=== PATIENT | male | born 1975 | race Two or more races ===

== ENCOUNTER → 2019-01-09 | Outpatient (CLI) | payer OTHER ==
[~2019-01-09] MED LIST: CONRAY-43 43% 50ML VIAL (Q9960) As Ordered ONE; PROHANCE 279.3MG/ML 5ML VIAL (A9576) As Ordered ONE
--- NOTE | 2019-01-09 11:26 | REP ---
MR ARTHROGRAM, RIGHT SHOULDER: TECHNIQUE: Axial T2 fat sat, coronal oblique T1, T2 fat sat, post arthrogram axial T1 fat sat, proton density, coronal oblique T1 fat sat, T2 sat, sagittal oblique T2 fat sat, ABER T1 fat sat. Mild ill-defined high signal is seen in the supraspinatus tendon compatible with mild tendinopathy/tendinitis. No rotator cuff tendon tear is seen. There is mild hypertrophic changes at the acromioclavicular joint with mild fluid in the joint and a tiny subchondral cyst in the distal end of the clavicle. Acromion is type 1. The biceps tendon is within the bicipital groove and no tenosynovitis. There is no Hill-Sachs deformity. A small band-like area of high signal on T2-weighted images in the posterior deltoid muscle may represent a muscle strain. The biceps labral complex appears intact. There is a diffuse tear of the inferior labrum. This extends into the inferior aspect of the posterior labrum. There is a small paralabral cyst at that location measuring approximately 3 mm in diameter. There also appears to be a tear of the superior aspect of the posterior labrum. Bone marrow signal is otherwise unremarkable. There is a normal amount of joint fluid. IMPRESSION: Mild supraspinatus tendinopathy/tendinitis without a evidence of a rotator cuff tendon tear. Mild hypertrophic degenerative changes of the acromioclavicular joint. Small band of increased signal on T2-weighted images in the posterior deltoid muscle may represent a small muscle strain or partial tear. Diffuse tear of the inferior labrum extending into the inferior aspect of the posterior labrum. There is a 3 mm paralabral cyst adjacent to the inferior aspect of the posterior labrum. There also appears to be a tear of the superior aspect of the posterior labrum. Electronically Signed by Emeka Rivera MD 01/09/2019 04:15 P
--- NOTE | 2019-01-09 11:56 | REP ---
Procedure: Right shoulder arthrogram The procedure was performed under the direct supervision of Dr. Pabon. History: Right shoulder pain The benefits and risks including but not limited to pain, infection, bleeding and anaphylaxis were explained to the patient and informed consent was obtained. Technique: The right glenohumeral joint space was localized using fluoroscopic guidance. The skin was prepped and draped in a sterile fashion. 1% lidocaine was used as a local anesthetic. Using fluoroscopic guidance a 22 gauge spinal needle was inserted and advanced into the joint. 0.5 ml of Conray 43 was injected to verify placement. 11 ml of a solution containing 20 ml of sterile saline and 0.15 ml of ProHance was injected into the joint. The needle was removed and the patient was taken to MRI for postprocedural imaging. The patient tolerated the procedure well and there were no immediate complications. Less than 6 seconds of fluoro time was utilized for this procedure. Reviewed by ADRIENNE Redman 01/09/2019 09:36 A Electronically Signed by Clive Pabon MD 01/09/2019 11:47 A
== END ==
LOC: M RADPRO 06:33
PROVIDERS: ATTEND Physician Assistant
DX: M75.80 Other shoulder lesions, unspecified shoulder (principal); S43.431A Superior glenoid labrum lesion of right shoulder, initial encounter; M25.511 Pain in right shoulder; Y92.89 Other specified places as the place of occurrence of the external cause; Y93.89 Activity, other specified; X58.XXXA Exposure to other specified factors, initial encounter; Y99.8 Other external cause status
CPT/HCPCS: 23350; 73223; 77002; A9576; Q9960

== ENCOUNTER → 2019-03-05 | Outpatient (CLI) | payer OTHER ==
--- NOTE | 2019-03-13 23:57 | ECWPNPC ---
PATIENT NAME: AGUSTO CORREA : 1975 GENDER: MALE VISIT DATE: 03/05/2019 DISCHARGE DATE: 03/05/19 1212 VISIT LOCKED DATE TIME: PHYSICIAN: EDITH AMADOR MD RESOURCE: EDITH AMADOR MD REASON FOR APPOINTMENT 1. LOW BACK/HIPS HISTORY OF PRESENT ILLNESS PAIN SCREENING: PATIENT HAS A COMPLAINT OF ACUTE OR CHRONIC PAIN :YES 43 YEAR OLD MALE PATIENT WITH A HISTORY OF CHRONIC MULTI-BODY PAIN. THE PATIENT DESCRIBES THE PAIN SHARP, STABBING, SHOOTING, INTERMITTENT, AND DAILY WITH A PAIN SCORE OF 5-10/10 DEPENDING ON PHYSICAL ACTIVITY. THE PATIENT STATES HE EXPERIENCES PAIN AT VARIOUS LOCATIONS OF HIS BODY, BUT THE MAIN PAIN IS EXPERIENCED IN BOTH SHOULDERS, LOW BACK, AND HIPS. THE PATIENT SAYS HE EXPERIENCED A LOT OF TRAUMA WHILE BEING [place] IN THE AND HE HAS SUFFERED FROM THE PAIN FOR MANY YEARS AFTERWARD. THE PATIENT SAYS PAIN RADIATES FROM HIS LOW BACK AND TRAVELS INTO HIS PELVIS, GROIN, AND DOWN BOTH LEGS, BUT MAINLY HIS LEFT LEG IS AFFECTED. THE PATIENT SAYS THE LOW BACK PAIN IS ALSO CAUSING TESTICULAR AND IMPOTENCE ISSUES. THE PATIENT MENTIONS HE HAS A HISTORY OF LEFT LEG NERVE DAMAGE AND HAS HAD NERVE CONDUCTION STUDIES DONE TWICE IN THE PAST. PATIENT DENIES UNEXPLAINABLE WEIGHT LOSS, FEVER, CHILLS, NEW CHANGES ON HIS URINARY OR BOWEL CONTROL. FALL RISK SCREENING: SCREENING :NO FALLS REPORTED IN THE LAST YEAR CURRENT MEDICATIONS TAKING VERAPAMIL HCL 80 MG TABLET 1 TABLET ORALLY BID TAKING ASPIRIN 81 81 MG TABLET DELAYED RELEASE 1 TABLET ORALLY ONCE A DAY TAKING ZOFRAN 4 MG TABLET 1 TABLET ORALLY NEEDED TAKING VITAMIN C 500 MG CAPSULE DIRECTED ORALLY TAKING MULTI FOR HIM - TABLET DIRECTED ORALLY TAKING CALCIUM 75 MG TABLET 1 TABLET ORALLY ONCE A DAY MEDICATION LIST REVIEWED AND RECONCILED WITH THE PATIENT PAST MEDICAL HISTORY TBI MIGRAINES CHRONIC LOW BACK PAIN SLEEP APNEA ALLERGIES PENICILLIN (FOR ALLERGIES USE ONLY) -TRIPTAN CLASS DRUGS: LEFT SIDED WEAKNESS ASSOCIATED WITH MIGRAINES SURGICAL HISTORY CYST REMOVAL CHILDHOOD TONSILLECTOMY CHILDHOOD WISDOM TEETH REMOVAL 1999 FAMILY HISTORY FATHER: ALIVE 81 YRS, DIAGNOSED WITH DIABETES MOTHER: ALIVE 78 YRS SIBLINGS: ALIVE 46 YRS SOCIAL HISTORY GENERAL: TOBACCO USE ARE YOU A:NONSMOKER EDUCATION LEVEL OF EDUCATION:NOT FINISHED COLLEGE LANGUAGE LANGUAGES SPOKEN:HEBREW RECREATIONAL DRUG USE DRUG USE?NO LEARNING BARRIERS / SPECIAL NEEDS BARRIERS TO LEARNING?NO HEARING IMPAIRED?YES VISION IMPAIRED?NO COGNITIVELY IMPAIRED?NO READINESS TO LEARN?YES PAIN CLINIC PFS, CLERGY, PUBLIC HEALTH REFERRALS HAS THE PATIENT BEEN EDUCATED REGARDING HIS/HER PLAN OF CARE?YES HAS THE PATIENT BEEN EDUCATED REGARDING PAIN, THE RISK FOR PAIN, THE IMPORTANCE OF EFFECTIVE PAIN MANAGEMENT, AND THE PAIN ASSESSMENT PROCESS?YES LATEX QUESTIONNAIRE LATEX ALLERGY : HAVE YOU EVER DEVELOPED ANY TYPE OF REACTION AFTER HANDLING LATEX PRODUCTS SUCH RUBBER GLOVES, CONDOMS, DIAPHRAGMS, BALLOONS, SOCKS, OR UNDERWEAR?NO LATEX ALLERGY : HAVE YOU EVER DEVELOPED ANY TYPE OF REACTION DURING OR AFTER DENTAL APPOINTMENT, VAGINAL/RECTAL EXAMINATION, SURGICAL PROCEDURE, OR ANY OTHER EXPOSURE?NO LATEX RISK : HAVE YOU EVER HAD ANY DIFFICULTY BREATHING OR HIVES AFTER EATING OR HANDLING ANY FRUITS, OR VEGETABLES; SUCH KIWI, BANANAS, STONE FRUITS, OR CHESTNUTSNO LATEX RISK : DO YOU HAVE A PREVIOUS PERSONAL HISTORY OF MORE THAN NINE SURGERIES, SPINA BIFIDA, OR REPEATED CATHERIZATIONS? NO LATEX RISK : ARE YOU FREQUENTLY EXPOSED TO LATEX PRODUCTS IN YOUR OCCUPATION?NO DATE ASKED : 03/05/2019 CAFFEINE CAFFEINE USE?YES HOW OFTEN AND HOW MUCH? COFFEE/SODA/TEA 2X'S A DAY ADVANCE DIRECTIVE ADVANCE DIRECTIVE DISCUSSED WITH PATIENT:YES PT DOES NOT HAVE HCP AND DECLINES INFO AT THIS TIME 03/05/19 TAOISM [id number] CONFUCIANISM MARITAL STATUS: . ALCOHOL SCREENING DID YOU HAVE A DRINK CONTAINING ALCOHOL IN THE PAST YEAR?NO POINTS0 INTERPRETATIONNEGATIVE OCCUPATION: [email or web address]. REVIEWED WITH PT 03/05/10 1108 BV. HOSPITALIZATION/MAJOR DIAGNOSTIC PROCEDURE SEE SURGERIES ABOVE REVIEW OF SYSTEMS REVIEWED BY: PROVIDER: EDITH AMADOR MD . CONSTITUTIONAL: ANY CHANGE IN YOUR MEDICAL CONDITION? NO . CHILLS NO . FEVER NO . INFECTION: DO YOU HAVE NEW INFECTIONS? NO . DO YOU HAVE HISTORY OF MRSA? NO . MUSCULOSKELETAL: ANY NEW PATTERNS OF PAIN OR NUMBNESS? NO . SYTEMIC LUPUS NO . GASTROENTEROLOGY: ANY NEW CHANGE IN BOWEL CONTROL? NO . BARRETTS ESOPHAGUS NO . CIRRHOSIS NO . HEPATITIS NO . LIVER FAILURE NO . ACID REFLUX YES . UNEXPLAINED WEIGHT LOSS NO . GENITOURINARY: ANY NEW CHANGE IN BLADDER CONTROL? NO . IS THERE A CHANCE YOU COULD BE ? NO . HEMATOLOGY/LYMPH: DO YOU TAKE ANY BLOOD THINNERS? (FOR EXAMPLE- COUMADIN, PLAVIX, AGGRENOX, PLATEL, PRADAXA, OR XARELTO) NO . WHEN WAS YOUR LAST DOSE? DATE: TIME: . LOW PLATELET COUNT NO . SICKLE CELL DISEASE NO . VON WILLIEBRANDS NO . FACTOR V LEIDEN NO . THALLASEMIA NO . ANEMIA NO . EASY BRUISING NO . NEUROLOGY: HAVE YOU FALLEN IN THE PAST 12 MONTHS? NO . ANY NEW EXTREMITY NUMBNESS OR WEAKNESS? NO . HEAD INJURY YES, 2 FALLS RELATED, WAS INJURED WITH IED. STATES LOSS OF CONSCIOUSNESS WITH ALL. DIAGNOSED WITH TBI AND STATES HAD A LESION ON BRAIN-UPPER RIGHT ALEXIS . DEMENTIA NO . CEREBRAL PALSY NO . MULTIPLE SCLEROSIS NO . DIZZINESS YES . HEADACHE YES, FEW TIMES A WEEK . STROKES NO . VERTIGO YES, INTERMITTENT, SOMETIME WHILE RIDING ELEVATOR, WHILE GETTING UP FROM A SITTING POSITION, WITH MOVEMENT OF HEAD . CARDIOLOGY: DO YOU HAVE A PACEMAKER OR DEFIBRILLATOR? NO . ANGINA NO . HEART ATTACK NO . HEART SURGERY NO . CONGESTIVE HEART FAILURE/FLUID OVERLOAD NO . CHEST PAIN NO . HIGH BLOOD PRESSURE ON MEDICATION(S) . IRREGULAR HEART BEAT NO . RESPIRATORY: HAVE YOU BEEN SICK IN THE PAST WEEK? NO . FEVER NO . FLU LIKE SYMPTOMS? NO . CPAP YES . BYPAP NO . ASTHMA NO . EMPHYSEMA NO . CHRONIC LUNG DISEASES NO . SHORTNESS OF BREATH ON EXERTION NO . COUGH NO . SNORING NO . INTEGUMENTARY: DO YOU HAVE ANY RASHES OR OPEN SORES? NO . ALLERGIC/IMMUNO: ARE YOU ALLERGIC TO IV DYE? NO . ANY NEW ALLERGIES? NO . PSYCHIATRIC: DO YOU HAVE THOUGHTS OF HURTING YOURSELF OR SOMEONE ELSE? NO . ARE YOU ABUSED, NEGLECTED, OR IN AN UNSAFE ENVIRONMENT? NO . ENDOCRINOLOGY: ARE YOU DIABETIC? NO . THYROID DISORDER NO . OTHER: DO YOU NEED ANY PRESCRIPTIONS? NO . IF YES, PLEASE LIST: ____ . ANY NEW PROBLEMS WITH YOUR MEDICATIONS? NO . WHEN DID YOU LAST EAT? ____ . WHEN DID YOU LAST DRINK? ____ . WHAT DID YOU LAST DRINK? ____ . NAME OF PERSON DRIVING YOU HOME? ____ . DO YOU HAVE ANY OTHER QUESTIONS OR CONCERNS NO . VITAL SIGNS WT 290.2 LBS, HT 73 IN, BMI 38.28 INDEX, BP 131/87 MM HG, HR 78 /MIN, RR 18 /MIN, TEMP 96.8 F, OXYGEN SAT % 78, NA INITIALS SC 10:59, REVIEWED BY: BV. EXAMINATION GENERAL EXAMINATION: PATIENT IS ALERT O X 3 AND COOPERATIVE. LUNGS CLEAR, TO AUSCULTATION. HEART: NO MURMURS OR GALLOPS; FACIAL CRANIAL NERVES ARE GROSSLY NORMAL. GOOD SYMMETRY OF FACIAL MUSCLE MOVEMENT. NORMAL VISUAL HURT. TENDERNESS IN THE LOW BACK. ANTALGIC WALK. PATIENT IS LIMPING FROM THE RIGHT LEG. BOTH LEGS ARE WEAK, BUT LEFT LEG IS WEAKER AT EXTENSION AND FLEXION, WHILE THE RIGHT LEG HURTS WORSE. STRAIGHT LEG RAISE OF THE RIGHT LEG IS POSITIVE AT 50 DEGREES FOR RADICULOPATHY. ASSESSMENTS LUMBAGO WITH SCIATICA, LEFT SIDE - M54.42 (PRIMARY) LUMBAGO WITH SCIATICA, RIGHT SIDE - M54.41 OTHER CHRONIC PAIN - G89.29 INTERVERTEBRAL DISC DISORDER WITH RADICULOPATHY OF LUMBAR REGION - M51.16 INTERVERTEBRAL DISC DISORDER WITH RADICULOPATHY OF LUMBOSACRAL REGION - M51.17 TREATMENT LUMBAGO WITH SCIATICA, LEFT SIDE CLINICAL NOTES: WE DISCUSSED SEVERAL ISSUES WITH MR. CORREA'S PAIN MANAGEMENT CASE. I AM REQUESTING FOR A LUMBAR MRI TO BE PERFORMED TO UNDERSTAND WHAT IS CAUSING THE LOW BACK PAIN AND PAIN DOWN THE LEGS. I AM REFERRING THE PATIENT TO A NEUROLOGIST FOR ELECTROMYOGRAPHY AND NERVE CONDUCTION STUDIES TO GAIN UNDERSTANDING OF WHAT IS CAUSING THE NUMBNESS DOWN HIS LEGS. THE PATIENT IS ADVISED TO TRY TO COLLECT HIS PAST TWO NERVE CONDUCTION STUDIES SO THERE IS A COMPARISON WITH THE NEW STUDIES. I AM ALSO REFERRING THE PATIENT TO AN UROLOGIST TO RECEIVE HELP WITH HIS INGUINAL PAIN, TESTICULAR, AND IMPOTENCE ISSUES. THE PATIENT WILL FOLLOW UP IN 4 WEEKS. INSTRUCTIONS WERE GIVEN, QUESTIONS WERE ANSWERED, PATIENT REPORTS UNDERSTANDING AND AGREES WITH THE PLAN. I, SRI DIAZ, DOCUMENTED THE ABOVE INFORMATION ACTING A SCRIBE FOR DR. AMADOR. I HAVE REVIEWED THE ABOVE DOCUMENT, WRITTEN BY SRI SMITHIBJayleen AND I VERIFY THAT IT IS ACCURATE. DEAR PHOEBE DENISE, Joel.A.: THANK YOU FOR YOUR KIND REFERRAL OF AGUSTO CORREA. IF YOU WANT TO DISCUSS HIS CASE WITH ME PLEASE CALL ME AT THE PAIN CENTER AT [phone]. SINCERELY, EDITH AMADOR MD PAIN MEDICINE . PROCEDURE CODES FA211 ESTABILISHED PATIENT [facility] FACILITY CHARGE G6627 CURRENT MEDS W/DOSAGES DOCUMENTED G4330 PAIN ASSESS POS TOOL F/U PLAN DOC DISPOSITION & COMMUNICATION FOLLOW UP 4 WEEKS (REASON: MRI RESULTS, REFER TO UROLOGIST/NEUROLOGIST) ELECTRONICALLY SIGNED BY EDITH AMADOR MD, MD ON 03/13/2019 AT 02:03 PM EDT DISCLAIMER : THIS IS A VISIT SUMMARY EXTRACTED FROM THE [employer] CHART. IT IS NOT A COPY OF THE [employer] PROGRESS NOTE. LORENZO
== END ==
LOC: M PAIN 11:00
PROVIDERS: ATTEND Anesthesiology
DX: G89.29 Other chronic pain (principal); M51.16 Intervertebral disc disorders with radiculopathy, lumbar region; M51.17 Intervertebral disc disorders with radiculopathy, lumbosacral region; Z87.820 Personal history of traumatic brain injury; G43.909 Migraine, unspecified, not intractable, without status migrainosus; G47.30 Sleep apnea, unspecified; Z79.82 Long term (current) use of aspirin; Z79.899 Other long term (current) drug therapy; Z88.0 Allergy status to penicillin; Z88.8 Allergy status to other drugs, medicaments and biological substances

== ENCOUNTER → 2019-04-12 | Outpatient (CLI) | payer OTHER ==
--- NOTE | 2019-04-20 02:11 | ECWPNPC ---
PATIENT NAME: AGUSTO CORREA : 1975 GENDER: MALE VISIT DATE: 04/12/2019 DISCHARGE DATE: 04/12/19 1359 VISIT LOCKED DATE TIME: PHYSICIAN: EDITH AMADOR MD RESOURCE: EDITH AMADOR MD REASON FOR APPOINTMENT 1. LOW BACK HISTORY OF PRESENT ILLNESS HISTORY OF PRESENT ILLNESS: PAIN THE PATIENT DESCRIBES THE PAIN... 43 YEAR OLD MALE PATIENT WITH A HISTORY OF CHRONIC LOW BACK AND LEG PAIN. THE PATIENT DESCRIBES THE PAIN ACHING, STABBING, SHOOTING, SHARP, AND DAILY WITH A PAIN SCORE OF 7-10/10 DEPENDING ON PHYSICAL ACTIVITY. THE PATIENT STATES HIS PAIN BEGINS IN HIS LOW BACK AND RADIATES DOWN BOTH LEGS. THE PATIENT SAYS HIS PAIN BEGAN FROM ACTIVITIES AND DUTIES A SOLDIER, INCLUDING MULTIPLE JUMPS. THE PATIENT SAYS HE HAS PAIN IN HIS RIGHT HIP THAT RADIATES INSIDE AT THE JUNCTION OF RIGHT HIP AND LEG. THE PATIENT SAYS HE ALSO EXPERIENCES PAIN IN HIS LOW BACK, MAINLY ON HIS LEFT SIDE THAT RADIATES DOWN LEFT LATERAL ASPECT OF LEFT LEG WITH SOME NUMBNESS WELL. THE PATIENT MENTIONS HE HAS HAD INJECTIONS DONE IN THE PAST THAT HELPED WITH SOME OF HIS PAIN. PATIENT DENIES UNEXPLAINABLE WEIGHT LOSS, FEVER, CHILLS, NEW CHANGES ON HIS URINARY OR BOWEL CONTROL. FALL RISK SCREENING: SCREENING :NO FALLS REPORTED IN THE LAST YEAR CURRENT MEDICATIONS TAKING VERAPAMIL HCL 80 MG TABLET 1 TABLET ORALLY BID TAKING ASPIRIN 81 81 MG TABLET DELAYED RELEASE 1 TABLET ORALLY ONCE A DAY TAKING ZOFRAN 4 MG TABLET 1 TABLET ORALLY NEEDED TAKING VITAMIN C 500 MG CAPSULE DIRECTED ORALLY TAKING MULTI FOR HIM - TABLET DIRECTED ORALLY TAKING CALCIUM 75 MG TABLET 1 TABLET ORALLY ONCE A DAY TAKING ATIVAN 0.5 MG TABLET 1 TABLET NEEDED ORALLY EVERY 6 HRS MEDICATION LIST REVIEWED AND RECONCILED WITH THE PATIENT PAST MEDICAL HISTORY TBI MIGRAINES CHRONIC LOW BACK PAIN SLEEP APNEA ALLERGIES PENICILLIN (FOR ALLERGIES USE ONLY) -TRIPTAN CLASS DRUGS: LEFT SIDED WEAKNESS ASSOCIATED WITH MIGRAINES SURGICAL HISTORY CYST REMOVAL CHILDHOOD TONSILLECTOMY CHILDHOOD WISDOM TEETH REMOVAL 1999 FAMILY HISTORY FATHER: ALIVE 81 YRS, DIAGNOSED WITH DIABETES MOTHER: ALIVE 78 YRS SIBLINGS: ALIVE 46 YRS SOCIAL HISTORY GENERAL: TOBACCO USE ARE YOU A:NONSMOKER EDUCATION LEVEL OF EDUCATION:NOT FINISHED COLLEGE LANGUAGE LANGUAGES SPOKEN:SIERRA LEONEAN RECREATIONAL DRUG USE DRUG USE?NO LEARNING BARRIERS / SPECIAL NEEDS BARRIERS TO LEARNING?NO HEARING IMPAIRED?YES VISION IMPAIRED?NO COGNITIVELY IMPAIRED?NO READINESS TO LEARN?YES PAIN CLINIC PFS, CLERGY, PUBLIC HEALTH REFERRALS WAS THE PROVIDER NOTIFIED OF ANY PERTINENT INFO?YES HAS THE PATIENT BEEN EDUCATED REGARDING HIS/HER PLAN OF CARE?YES HAS THE PATIENT BEEN EDUCATED REGARDING PAIN, THE RISK FOR PAIN, THE IMPORTANCE OF EFFECTIVE PAIN MANAGEMENT, AND THE PAIN ASSESSMENT PROCESS?YES LATEX QUESTIONNAIRE LATEX ALLERGY : HAVE YOU EVER DEVELOPED ANY TYPE OF REACTION AFTER HANDLING LATEX PRODUCTS SUCH RUBBER GLOVES, CONDOMS, DIAPHRAGMS, BALLOONS, SOCKS, OR UNDERWEAR?NO LATEX ALLERGY : HAVE YOU EVER DEVELOPED ANY TYPE OF REACTION DURING OR AFTER DENTAL APPOINTMENT, VAGINAL/RECTAL EXAMINATION, SURGICAL PROCEDURE, OR ANY OTHER EXPOSURE?NO LATEX RISK : HAVE YOU EVER HAD ANY DIFFICULTY BREATHING OR HIVES AFTER EATING OR HANDLING ANY FRUITS, OR VEGETABLES; SUCH KIWI, BANANAS, STONE FRUITS, OR CHESTNUTSNO LATEX RISK : DO YOU HAVE A PREVIOUS PERSONAL HISTORY OF MORE THAN NINE SURGERIES, SPINA BIFIDA, OR REPEATED CATHERIZATIONS? NO LATEX RISK : ARE YOU FREQUENTLY EXPOSED TO LATEX PRODUCTS IN YOUR OCCUPATION?NO DATE ASKED : 04/12/2019 CAFFEINE CAFFEINE USE?YES HOW OFTEN AND HOW MUCH? COFFEE/SODA/TEA 2X'S A DAY ADVANCE DIRECTIVE ADVANCE DIRECTIVE DISCUSSED WITH PATIENT:YES PT DOES NOT HAVE HCP AND DECLINES INFO AT THIS TIME FAITH [id number] RASTAFARIAN MARITAL STATUS: . ALCOHOL SCREENING DID YOU HAVE A DRINK CONTAINING ALCOHOL IN THE PAST YEAR?NO POINTS0 INTERPRETATIONNEGATIVE OCCUPATION: . REVIEWED WITH PT 03/05/10 1108 BV. HOSPITALIZATION/MAJOR DIAGNOSTIC PROCEDURE SEE SURGERIES ABOVE REVIEW OF SYSTEMS REVIEWED BY: PROVIDER: EDITH AMADOR MD . CONSTITUTIONAL: ANY CHANGE IN YOUR MEDICAL CONDITION? NO . CHILLS NO . FEVER NO . INFECTION: DO YOU HAVE NEW INFECTIONS? NO . DO YOU HAVE HISTORY OF MRSA? NO . MUSCULOSKELETAL: ANY NEW PATTERNS OF PAIN OR NUMBNESS? NO . GASTROENTEROLOGY: ANY NEW CHANGE IN BOWEL CONTROL? NO . GENITOURINARY: ANY NEW CHANGE IN BLADDER CONTROL? NO . IS THERE A CHANCE YOU COULD BE ? NO . HEMATOLOGY/LYMPH: DO YOU TAKE ANY BLOOD THINNERS? (FOR EXAMPLE- COUMADIN, PLAVIX, AGGRENOX, PLATEL, PRADAXA, OR XARELTO) NO . WHEN WAS YOUR LAST DOSE? DATE: TIME: . NEUROLOGY: HAVE YOU FALLEN IN THE PAST 12 MONTHS? NO . ANY NEW EXTREMITY NUMBNESS OR WEAKNESS? NO . CARDIOLOGY: DO YOU HAVE A PACEMAKER OR DEFIBRILLATOR? NO . RESPIRATORY: HAVE YOU BEEN SICK IN THE PAST WEEK? NO . FEVER NO . FLU LIKE SYMPTOMS? NO . COUGH NO . INTEGUMENTARY: DO YOU HAVE ANY RASHES OR OPEN SORES? NO . ALLERGIC/IMMUNO: ARE YOU ALLERGIC TO IV DYE? NO . ANY NEW ALLERGIES? NO . PSYCHIATRIC: DO YOU HAVE THOUGHTS OF HURTING YOURSELF OR SOMEONE ELSE? NO . ARE YOU ABUSED, NEGLECTED, OR IN AN UNSAFE ENVIRONMENT? NO . ENDOCRINOLOGY: ARE YOU DIABETIC? NO . OTHER: DO YOU NEED ANY PRESCRIPTIONS? NO . IF YES, PLEASE LIST: ____ . ANY NEW PROBLEMS WITH YOUR MEDICATIONS? NO . WHEN DID YOU LAST EAT? ____ . WHEN DID YOU LAST DRINK? ____ . WHAT DID YOU LAST DRINK? ____ . NAME OF PERSON DRIVING YOU HOME? ____ . DO YOU HAVE ANY OTHER QUESTIONS OR CONCERNS NO . VITAL SIGNS WT 290.2 LBS, HT 73 IN, BMI 38.28 INDEX, BP 141/91 MM HG, HR 76 /MIN, RR 18 /MIN, TEMP 97.2 F, OXYGEN SAT % 97%, SAFE IN ENV? (Y/N) Y, NA INITIALS SC 15:50, REVIEWED BY: MIR. EXAMINATION GENERAL EXAMINATION: PATIENT IS ALERT O X 3 AND COOPERATIVE. TENDERNESS IN THE LOW BACK, ESPECIALLY ON THE LEFT SIDE. MRI OF THE LUMBAR SPINE DONE ON 03/08/2019 SHOWS BULGING DISC AT L4-L5. ASSESSMENTS INTERVERTEBRAL DISC DISORDER WITH RADICULOPATHY OF LUMBAR REGION - M51.16 (PRIMARY) RIGHT HIP PAIN - M25.551 TREATMENT INTERVERTEBRAL DISC DISORDER WITH RADICULOPATHY OF LUMBAR REGION CLINICAL NOTES: WE DISCUSSED SEVERAL ISSUES WITH MR. CORREA'S PAIN MANAGEMENT CASE. 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 I DISCUSSED WITH THE PATIENT HE MAY BE A CANDIDATE FOR A LUMBAR EPIDURAL TO ADDRESS HIS LOW BACK AND RADIATING LEG PAIN, HOWEVER THE PATIENT HAD INJECTIONS DONE IN THE PAST THAT RESULTED IN VARIABLE PAIN RELIEF, AND WOULD LIKE TO WAIT TO RESEARCH ALL OPTIONS FIRST BEFORE PROCEEDING WITH ANY INJECTION THERAPY. I AM REFERRING THE PATIENT TO [facility] TO DISCUSS REGARDING HIS RIGHT HIP PAIN. I AM REFERRING THE PATIENT TO A NEUROLOGIST FOR ELECTROMYOGRAPHY AND NERVE CONDUCTION STUDIES TO GAIN UNDERSTANDING OF WHAT IS CAUSING THE NUMBNESS DOWN HIS LEGS. THE PATIENT IS ADVISED TO TRY TO COLLECT HIS PAST TWO NERVE CONDUCTION STUDIES SO THERE IS A COMPARISON WITH THE NEW STUDIES. I AM ALSO REFERRING THE PATIENT TO AN UROLOGIST TO RECEIVE HELP WITH HIS INGUINAL PAIN, TESTICULAR, AND IMPOTENCE ISSUES. I WILL START THE PATIENT ON GABAPENTIN 300 MG TO HELP WITH NEUROPATHIC PAIN. I PROVIDED A SCHEDULE FOR THE PATIENT TO SLOWLY INCREASE UP TO 3 TABLETS DAILY, IN ORDER TO AVOID ANY ADVERSE SIDE EFFECTS. THE PATIENT WILL FOLLOW UP WITH THE NURSE PRACTITIONER IN SEVERAL WEEKS. I WAS WITH THE PATIENT OVER 30 MINUTES, MORE THAN HALF OF THE TIME WAS DISCUSSING OPTIONS AND CLARIFYING ISSUES IN HIS CARE. INSTRUCTIONS WERE GIVEN, QUESTIONS WERE ANSWERED, PATIENT REPORTS UNDERSTANDING AND AGREES WITH THE PLAN. I, SRI DIAZ, DOCUMENTED THE ABOVE INFORMATION ACTING A SCRIBE FOR DR. AMADOR. I HAVE REVIEWED THE ABOVE DOCUMENT, WRITTEN BY SRI ESPINOZA AND I VERIFY THAT IT IS ACCURATE. . OTHERS START GABAPENTIN CAPSULE, 300 MG, 1 CAPSULE, ORALLY FOR PAIN, THREE TIMES DAILY MDD3, 30 DAY(S), 90, REFILLS 1 PROCEDURE CODES G8427 CURRENT MEDS W/DOSAGES DOCUMENTED G8730 PAIN ASSESS POS TOOL F/U PLAN DOC FA211 ESTABILISHED PATIENT [facility] CHARGE DISPOSITION & COMMUNICATION FOLLOW UP 6 WEEKS (REASON: F/U W/ SOUND MIXER, REFER TO ORTHO) ELECTRONICALLY SIGNED BY EDITH AMADOR MD, MD ON 04/19/2019 AT 01:37 PM EDT DISCLAIMER : THIS IS A VISIT SUMMARY EXTRACTED FROM THE [employer] CHART. IT IS NOT A COPY OF THE [employer] PROGRESS NOTE. SONALID
== END ==
LOC: M PAIN 15:45
PROVIDERS: ATTEND Anesthesiology
DX: M51.16 Intervertebral disc disorders with radiculopathy, lumbar region (principal); M25.551 Pain in right hip; G89.29 Other chronic pain; Z87.820 Personal history of traumatic brain injury; G43.909 Migraine, unspecified, not intractable, without status migrainosus; G47.30 Sleep apnea, unspecified; Z88.0 Allergy status to penicillin; Z88.8 Allergy status to other drugs, medicaments and biological substances; Z79.82 Long term (current) use of aspirin; Z79.899 Other long term (current) drug therapy